=== PATIENT | female | born 1945 | race Caucasian/White ===

== ENCOUNTER → 2020-11-14 | Outpatient (CLI) | payer MEDICARE ==
[~2020-11-14] MED LIST: ACET325 PO; ASPI81EC PO; Amox Tr-K Clv1 EAC2 PO; BENZ100A PO; CHOLESTEROL MED; CITA10S PO; CITA20 PO; CYCL10 PO; Hydromet Syrup473 ML PO; Prinivil10 MG PO
== END | disposition home or self-care (01) ==
LOC: LAB SHORT 11:25
DX: D48.5 Neoplasm of uncertain behavior of skin (principal)
CPT/HCPCS: 88305

== ENCOUNTER → 2020-11-14 | Outpatient (CLI) | payer MEDICARE | END | disposition home or self-care (01) | LOC: LAB SHORT 10:30 | DX: A49.9 Bacterial infection, unspecified (principal) | CPT/HCPCS: 87070; 87205 ==

== ENCOUNTER 2022-03-21 07:50 | Day surgery (SDC) | payer MEDICARE ==
[~2022-03-21] VITALS: Ht 165.1 cm; Wt 78.2 kg
[~2022-03-21 07:50] MED LIST changes: +Flonase 0.05% N16 GM; +MOBIC15 MG PO
--- NOTE | 2022-03-21 08:17 | NUR ---
03/21/22 0817 Kriss Rodriguez TETRACAINE TO RIGHT EYE AT 0812 PLEDGET TO RIGHT EYE AT 0813 BY [email or web address]
== END 2022-03-21 09:37 | disposition home or self-care (01) ==
LOC: ORSCSDS 07:50
PROVIDERS: Ophthalmology
PROC: 08RJ3JZ Replacement of Right Lens with Synthetic Substitute, Percutaneous Approach (ICD-10-PCS; principal; 2022-03-21 09:00)
DX: H25.11 Age-related nuclear cataract, right eye (principal); I10 Essential (primary) hypertension; Z79.899 Other long term (current) drug therapy
CPT/HCPCS: J2001; J2250; J2405; J3010; J3301; J7040; V2632

== ENCOUNTER 2022-04-02 12:49 | Day surgery (SDC) | payer MEDICARE ==
[~2022-04-02] VITALS: Ht 165.1 cm; Wt 77.5 kg
--- NOTE | 2022-04-02 13:14 | NUR ---
04/02/22 1314 Sandra Severino CALL LIGHT WITHIN REACH. TETRACAINE IN LEFT EYE AT 1314 AND PLEDGETT IN AT 1315
== END 2022-04-02 14:48 | disposition home or self-care (01) ==
LOC: ORSCSDS 12:49
PROVIDERS: Ophthalmology
PROC: 08DK3ZZ Extraction of Left Lens, Percutaneous Approach (ICD-10-PCS; principal; 2022-04-02 14:00)
DX: H25.12 Age-related nuclear cataract, left eye (principal); Z96.1 Presence of intraocular lens; I10 Essential (primary) hypertension; F32.A Depression, unspecified; M19.90 Unspecified osteoarthritis, unspecified site; Z79.899 Other long term (current) drug therapy
CPT/HCPCS: J2001; J2250; J3301; J7040; V2632

== ENCOUNTER → 2022-07-11 | Outpatient (CLI) | payer MEDICARE ==
[2022-07-11 15:17] LABS: Alanine Aminotransfer (ALT/SGP 27 U/L (12-78); Albumin, Blood 3.8 g/dL (3.4-5.0); Albumin/Globulin Ratio 1.2 (0.8-1.8); Alk Phos 87 U/L (50-136); Anion Gap 6 mmol/L (6-16); Aspartate Aminotrans (AST/SGOT 25 U/L (12-37); Bilirubin, Total 0.4 mg/dL (0.1-1.0); Blood Urea Nitrogen 15 mg/dL (8-24); CHOL/HDL RATIO 3.6; CO2, Blood 24 mmol/L (21-32); Calcium, Blood 9.1 mg/dL (8.5-10.1); Chloride, Blood 110 mmol/L (98-108); Cholesterol 205 mg/dL (50-200); Globulin, Blood 3.3 g/dL (2.2-4.0); Glomerular Filtration Rate 94 (60-); Glucose, Blood 89 mg/dL (70-99); HDL Cholesterol 57 mg/dL (>39); LDL/HDL RATIO 1.9; Low Density Lipoprotein Chol 109 mg/dL (0-110); Potassium, Blood 4.2 mmol/L (3.5-5.5); Sodium, Blood 140 mmol/L (136-145); Total Protein, Blood 7.1 g/dL (6.4-8.2); Triglycerides 193 mg/dL (30-160); Very Low Density Lipoprot Chol 38 mg/dL (6-32)
== END | disposition home or self-care (01) ==
LOC: LAB SHORT 11:43 → LAB 11:43
PROVIDERS: Hospitalist
DX: E78.5 Hyperlipidemia, unspecified (principal); I10 Essential (primary) hypertension
CPT/HCPCS: 80053; 80061; 84443

== ENCOUNTER → 2022-10-16 | Outpatient (CLI) | payer MEDICARE | LOC: LAB 10:17 → LAB SHORT 10:17 | DX: L70.2 Acne varioliformis (principal) | CPT/HCPCS: 87070; 87077; 87147; 87186; 87205 ==

== ENCOUNTER → 2024-02-05 | Outpatient (CLI) | payer MEDICARE ==
[2024-02-05 14:56] LABS: Anion Gap 9 mmol/L (3-11); Blood Urea Nitrogen 18 mg/dL (8-24); Bun/Creatinine Ratio 24.8 (12.0-20.0); CHOL/HDL RATIO 3.4; CO2, Blood 26 mmol/L (21-32); Calcium, Blood 9.4 mg/dL (8.5-10.1); Chloride, Blood 110 mmol/L (98-108); Cholesterol 209 mg/dL (50-200); Creatinine, Blood 0.73 mg/dL (0.40-1.00); Glomerular Filtration Rate 85 (60-); Glucose, Blood 87 mg/dL (70-99); HDL Cholesterol 62 mg/dL (>39); LDL/HDL RATIO 1.9; Low Density Lipoprotein Chol 115 mg/dL (0-110); Potassium, Blood 4.4 mmol/L (3.5-5.5); Sodium, Blood 141 mmol/L (136-145); Triglycerides 161 mg/dL (30-160); Very Low Density Lipoprot Chol 32 mg/dL (6-32)
== END | disposition home or self-care (01) ==
LOC: LAB 10:15 → LAB SHORT 10:15
PROVIDERS: Hospitalist
DX: E78.5 Hyperlipidemia, unspecified (principal); I10 Essential (primary) hypertension
CPT/HCPCS: 80048; 80061

== ENCOUNTER → 2024-11-26 | Outpatient (CLI) | payer MEDICARE ==
[2024-11-26 17:52] LABS: LDL/HDL RATIO 2.2; Very Low Density Lipoprot Chol 32 mg/dL (6-32)
[2024-11-26 17:53] LABS: CHOL/HDL RATIO 3.7; Cholesterol 209 mg/dL (50-200); HDL Cholesterol 56 mg/dL (>39); Low Density Lipoprotein Chol 121 mg/dL (0-110); Triglycerides 161 mg/dL (30-160)
== END ==
LOC: LAB SHORT 15:18 → LAB 15:18
PROVIDERS: Hospitalist
DX: E78.5 Hyperlipidemia, unspecified (principal)
CPT/HCPCS: 80061